=== PATIENT | female | born 1995 | race Caucasian/White ===

== ENCOUNTER 2022-07-22 16:26 | Emergency (ER) | payer OTHER, SELFPAY ==
--- NOTE | 2022-07-22 16:48 | ED.GENADULT ---
HPI - General Adult General Chief complaint: Upper Respiratory Infection Stated complaint: dizzines/fever/cotto Time Seen by Provider: 07/22/22 16:45 Source: patient and RN notes reviewed Mode of arrival: ambulatory Limitations: no limitations History of Present Illness HPI narrative: 26-year-old female presented for complaints of ?blackouts? intermittently this week, with an episode just prior to arrival while at dinner. She states she had sudden onset of feeling hot and sweaty, she tasted blood, then she would intermittently have black vision, and her boyfriend states she was ?spacing out. ? He states it lasted approximately 10 minutes. She recalls the episodes. States she had a headache today. Has only eaten a bag of pretzels today. Patient reports these episodes have occurred 1-2 times each day this week, and states today it lasted the longest. Denies recent illness. Denies heart racing, trouble breathing, n/v/d/f/c. She went to outside hospital earlier this week after an episode, which she attributed to mixing ammonia and bleach, states she had minimal workup and was told she has panic disorder. Daily vapes, and drinks about 5 beers per night. Denies drug use. LMP 06/24/22. Related Data Home Medications Medication Instructions Recorded Confirmed 07/22/22 Allergies Allergy/AdvReac Type Severity Reaction Status Date / Time No Known Allergies Allergy Verified 07/22/22 16:34 Review of Systems Review of Systems: CONSTITUTIONAL: Denies body aches, fever, chills, or sweats. EYES: Denies redness, or discharge. ENT: Denies rhinorrhea, congestion, sore throat, or otalgia. CARDIOVASCULAR: Denies chest pain, palpitations, or edema. RESPIRATORY: Denies cough or dyspnea. GASTROINTESTINAL: Denies abdominal pain, nausea, vomiting, or diarrhea. GENITOURINARY: Denies dysuria or hematuria. SKIN: Denies rash, itching, or wounds. MUSCULOSKELETAL: Denies back pain, joint pain, or myalgia. NEUROLOGIC: denies numbness, tingling, or weakness All systems reviewed & are unremarkable except as noted in HPI and below PMFSH Comments At time of signature, I have reviewed and agree with nursing past medical, surgical, social and family history unless otherwise noted. Please see nursing chart for further information. There is no relevant family history pertinent to the presenting complaint Exam Narrative: GENERAL: Well-appearing, well-nourished HEAD: Normocephalic, atraumatic. EYES: PERRLA, EOMI. ENT: Mucous membranes pink and moist. No rhinorrhea. TMs normal bilaterally. NECK: Normal AROM. Supple. No lymphadenopathy. CHEST: Clear to auscultation. HEART: Regular rate and rhythm. No murmur appreciated. Normal peripheral pulses. ABDOMEN: Soft, nontender, nondistended, normal active bowel sounds. SKIN: Warm, dry, no rash. Capillary refill normal. Normal skin turgor. NEURO:No focal deficits. Alert and oriented x3. Finger to nose intact bilaterally. EOMs intact without nystagmus. No facial droop/asymmetry noted bilaterally. Grimace intact. Intact sensation in face. Hearing intact bilaterally. Shoulder shrug intact. Strength 5/5 bilateral upper extremities. Ambulatory exam with a normal based, steady gait. PSYCH: Normal affect. Course Course Emergency Course: Patient is aware of diagnosis, understands and agrees to treatment plan. Anticipatory guidance given. Portions of this record may have been created with voice recognition software Level of Care: Express Care Visit Transfer Transfered to: [facility] Transportation: Other (Private vehicle) Transfer rationale: Pt is agreeable to transfer. Requests transfer to [facility] via private vehicle. Risks of transportation reviewed with pt including injury, worsening of condition and . v/u. Boyfriend will be driving pt; Report called to hospital, spoke with Dr Elmore, accepting physician. Pt is in stable condition at time of transfer. Advised to remain NPO and go direc
== END 2022-07-22 17:06 | disposition short-term general hospital (02) ==
PROVIDERS: Emergency Provider Nurse Practitioner Family
DX: H53.9 Unspecified visual disturbance (principal); Z86.16 Personal history of COVID-19
CPT/HCPCS: 99212; G0463

== ENCOUNTER 2022-07-22 17:26 | Emergency (ER) | payer OTHER, SELFPAY ==
[2022-07-22 17:45] VITALS: BP 133/74; PULSE 95; RESP 18; TEMP 36.9; O2SAT 100
--- NOTE | 2022-07-22 17:48 | PC.NURSE ---
pt left d/t wait time
== END 2022-07-22 18:03 | disposition left against medical advice (07) ==
LOC: ANHED 17:52
DX: R55 Syncope and collapse (principal)
CPT/HCPCS: 99199